=== PATIENT | male | born 1975 | race Caucasian/White ===

== ENCOUNTER 2020-01-03 18:19 | Emergency (ER) | payer OTHER, SELFPAY ==
[2020-01-03 18:23] VITALS: BP 130/89; PULSE 91; RESP 20; TEMP 36.9; O2SAT 95
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
[2020-01-03 20:29] VITALS: BP 128/88; PULSE 80; RESP 20; O2SAT 98
== END 2020-01-03 20:34 | disposition home or self-care (01) ==
PROVIDERS: Emergency Provider Family Medicine
DX: S61.210A Laceration without foreign body of right index finger without damage to nail, initial encounter (principal); S81.811A Laceration without foreign body, right lower leg, initial encounter; S51.012A Laceration without foreign body of left elbow, initial encounter; X99.8XXA Assault by other sharp object, initial encounter
CPT/HCPCS: 12002; 99282

== ENCOUNTER 2021-05-14 10:58 | Emergency (ER) | payer OTHER, SELFPAY ==
[2021-05-14 11:30] VITALS: BP 148/96; PULSE 75; RESP 18; TEMP 36.8; O2SAT 98
--- NOTE | 2021-05-14 12:03 | ED.URI ---
HPI - URI/Sore Throat General Chief Complaint: Upper Respiratory Infection Stated Complaint: Cough,Congestion,Wheezing,Stuffy Nose Time Seen by Provider: 05/14/21 11:53 Source: patient and RN notes reviewed Mode of arrival: ambulatory Limitations: no limitations History of Present Illness HPI Narrative: Patient presents today complaining of 4-day history of cough with wheezing, sore throat, chest congestion. Denies fever or any additional symptoms. He has not been taking any ieep-jmg-sydekke medication for symptoms prior to arrival. He had a negative COVID test 3 days ago. Denies any history of asthma or COPD. He is a non-smoker. He has been vaccinated against COVID-19. MD elicited complaint: cough and sore throat Related Data Home Medications Medication Instructions Recorded Confirmed amlodipine 10 mg DAILY 03/28/19 03/28/19 sertraline 100 mg DAILY 03/28/19 03/28/19 Allergies Allergy/AdvReac Type Severity Reaction Status Date / Time No Known Allergies Allergy Verified 10/30/17 17:40 Review of Systems Review of Systems: CONSTITUTIONAL: Denies body aches, fever, chills, or sweats. EYES: Denies visual changes, redness, or discharge. ENT: Denies rhinorrhea, congestion, or otalgia.+ Sore throat CARDIOVASCULAR: Denies chest pain, palpitations, or edema. RESPIRATORY: Denies dyspnea.+ Cough, wheezing, chest congestion GASTROINTESTINAL: Denies abdominal pain, nausea, vomiting, or diarrhea. GENITOURINARY: Denies dysuria or hematuria. SKIN: Denies rash, itching, or wounds. MUSCULOSKELETAL: Denies back pain, joint pain, or myalgia. NEUROLOGIC: Denies headache, numbness, tingling, or weakness. PSYCH: Denies depression or anxiety. PMFSH Social History Social History Gender identity (if verbalized by the patient): Male Comments At time of signature, I have reviewed and agree with nursing past medical, surgical, social and family history unless otherwise noted. Please see nursing chart for further information. There is no relevant family history pertinent to the presenting complaint Exam Narrative: GENERAL: Mildly ill-appearing, well-nourished, and in no acute distress. HEAD: Normocephalic, atraumatic. EYES: EOMI. No redness or drainage. Conjunctivae normal. ENT: Mucous membranes pink and moist. Nares clear. No rhinorrhea. TMs normal bilaterally. Throat normal. Uvula midline. NECK: Normal AROM. Supple. No lymphadenopathy. CHEST: No respiratory distress. Clear to auscultation. HEART: Regular rate and rhythm. No murmur appreciated. Normal peripheral pulses. EXTREMITIES: Normal range of motion. No edema. SKIN: Warm, dry, no rash. Capillary refill normal. Normal skin turgor. NEURO: No focal deficits. Alert and oriented x3. Gait steady. PSYCH: Normal affect. No signs of depression or anxiety. Course Course Level of Care: Express Care Visit Vital Signs Vital signs: Vital Signs Temperature 98.3 F 05/14/21 11:30 Pulse Rate 75 05/14/21 11:30 Respiratory Rate 18 05/14/21 11:30 Blood Pressure 148/96 H 05/14/21 11:30 Pulse Oximetry 98 05/14/21 11:30 Temperature 98.3 F 05/14/21 11:30 Pulse Rate 75 05/14/21 11:30 Respiratory Rate 18 05/14/21 11:30 Blood Pressure 148/96 H 05/14/21 11:30 Pulse Oximetry 98 05/14/21 11:30 Reviewed. Pt has been instructed to follow up with his PCP regarding his elevated blood pressure today. MDM - URI/Sore Throat Differential Diagnosis Differential diagnosis: Likely upper respiratory infection, sinusitis, viral infection, bronchitis and other (COVID-19) Lab Data Attestation: I reviewed the patient's lab results. Lab results narrative: Rapid COVID-19 test negative Critical Care Time Critical Care Time Critical Care Time: No Discharge Plan Discharge Clinical Impression: Upper respiratory infection Qualifiers: URI type: unspecified URI Qualified Code(s): J06.9 - Acute upper respira
== END 2021-05-14 12:13 | disposition home or self-care (01) ==
PROVIDERS: Emergency Provider Nurse Practitioner
DX: J06.9 Acute upper respiratory infection, unspecified (principal); Z20.822 Contact with and (suspected) exposure to COVID-19; I10 Essential (primary) hypertension; M10.9 Gout, unspecified
CPT/HCPCS: 87426; 99213; C9803; G0463

== ENCOUNTER 2021-08-15 14:15 | Emergency (ER) | payer OTHER, SELFPAY ==
--- NOTE | ~2021-08-15 | XR_ITS ---
EXAMINATION: XR chest 2V Exam Date/Time: 08/15/2021 15:00 CDT CLINICAL HISTORY: cough with sob x 4 days Comparison: 01/23/2008. RESULT: Lines, tubes, and devices: None. Lungs and pleura: Clear. Cardiomediastinal silhouette: Stable cardiomediastinal silhouette. Other: No acute osseous or upper abdominal finding. IMPRESSION: No acute cardiopulmonary process Reviewed, dictated and finalized at location K.
[2021-08-15 14:36] VITALS: BP 148/88; PULSE 95; RESP 18; TEMP 36.4; O2SAT 98
--- NOTE | 2021-08-15 14:43 | ED.URI ---
HPI - URI/Sore Throat General Chief Complaint: Upper Respiratory Infection Stated Complaint: wheezing,cough,runny nose Time Seen by Provider: 08/15/21 15:06 Source: patient and RN notes reviewed Mode of arrival: ambulatory Limitations: no limitations History of Present Illness HPI Narrative: 46-year-old male presents with concern for 5-day history of wheezing, runny nose, cough. Reports symptoms have been worsening. He denies history of asthma, COPD, emphysema, smoking. Reports his son had a cough last week. He denies trouble breathing. Denies relief with [id number]-[id number] medications. Denies nausea, vomiting, diarrhea, fever, body aches, chills, sweats. MD elicited complaint: cough and sore throat Related Data Home Medications Medication Instructions Recorded Confirmed amlodipine [Norvasc] 10 mg PO DAILY 08/15/21 08/15/21 benazepril 5 mg PO DAILY 08/15/21 08/15/21 sertraline [Zoloft] 100 mg PO DAILY 08/15/21 08/15/21 Allergies Allergy/AdvReac Type Severity Reaction Status Date / Time No Known Allergies Allergy Verified 08/15/21 15:06 Review of Systems Review of Systems: CONSTITUTIONAL: Denies malaise, chills, sweats, or fever. EYES: Denies visual changes, redness, or discharge. ENT: Reports rhinorrhea, congestion. Denies sinus pain, otalgia and sore throat. CARDIOVASCULAR: Denies chest pain, palpitations, or edema. RESPIRATORY: Reports cough, wheezing. Denies dyspnea. GASTROINTESTINAL: Denies abdominal pain, nausea, vomiting, diarrhea SKIN: Denies rash or itching. MUSCULOSKELETAL: Denies myalgia. NEUROLOGIC: Denies headache. All systems reviewed & are unremarkable except as noted in HPI and below PMFSH Social History Social History Gender identity (if verbalized by the patient): Male Comments At time of signature, agree with nursing past medical, surgical, social and family history. There is no relevant family history pertinent to the presenting complaint Exam Narrative: GENERAL: Well-appearing, well-nourished, and in no acute distress. HEAD: Normocephalic EYES: PERRLA, conjunctivae clear ENT: Nares clear, clear discharge. Mucous membranes moist. TM pearly adams with dull light reflex bilaterally; no tragal tenderness. Oropharynx not erythematous without lesions. Tonsils not enlarged and without exudate, no drooling, no hoarseness, no trismus, uvula midline. NECK: Supple. No lymphadenopathy CHEST: Scattered inspiratory and expiratory wheeze, breath sounds equal. No rhonchi, rales, or stridor. No respiratory distress, speaks in full sentences. HEART: Regular rate and rhythm. No murmur heard. SKIN: Warm, dry, no rash. NEURO: Alert and oriented x3. PSYCH: Normal mood and affect Course Course Emergency Course: Patient is aware of diagnosis, understands and agrees to treatment plan. Anticipatory guidance given. Patient agrees to follow-up as directed and is aware of reasons to seek care at the emergency department. Portions of this record may have been created with voice recognition software Level of Care: Express Care Visit Reevaluation(s) Reevaluation #1: Patient feels no improvement after first breathing treatment, lung sounds virtually unchanged. We will repeat breathing treatment and give a dose of IM Solu-Medrol Date: 08/31/21 Time: 15:40 Reevaluation #2: Lung sounds improved, aeration improved, wheezing improved. Patient reports he feels easier breathing. Will discharge with Medrol pack and inhaler Date: 08/15/21 Time: 16:09 Vital Signs Vital signs: Vital Signs Temperature 97.6 F 08/15/21 14:36 Pulse Rate 95 08/15/21 14:36 Respiratory Rate 18 08/15/21 14:36 Blood Pressure 148/88 H 08/15/21 14:36 Pulse Oximetry 98 08/15/21 14:36 Temperature 97.6 F 08/15/21 14:36 Pulse Rate 95 08/15/21 14:36 Respiratory Rate 18 08/15/21 14:36 Blood Pressure 148/88 H 08/15/21 14:36 Pulse Oximetry 98 08/15/21 14:36 Review
[2021-08-15] MEDS: ALBUTEROL SULFATE NEB 2.5 MG/3 ML INH INHALATION ×2 (15:13→15:50)
[2021-08-15] MEDS: IPRATROPIUM BR 0.02% INH SOLN 0.5 MG/2.5 ML VIAL INHALATION ×2 (15:13→15:50)
[2021-08-15] MEDS: methylPREDNISolone SOD SUCC 125 MG VIAL IM (15:51)
== END 2021-08-15 16:16 | disposition home or self-care (01) ==
PROVIDERS: Emergency Provider Nurse Practitioner
DX: R06.2 Wheezing (principal); J40 Bronchitis, not specified as acute or chronic; I10 Essential (primary) hypertension; M10.9 Gout, unspecified; F41.9 Anxiety disorder, unspecified; F32.A Depression, unspecified
CPT/HCPCS: 71046; 94640; 96372; 99213; G0463; J2930